=== PATIENT | female | born 1950 | race Caucasian/White ===

== ENCOUNTER 2021-02-08 17:19 | Inpatient (IN) | payer MEDICARE, SELFPAY ==
[2021-02-08] VITALS (7 sets, daily range): BP systolic 123–132; BP diastolic 59–71; PULSE 99–105; RESP 20–23; TEMP 36.7–36.8; O2SAT 90–96; BMI 32.3
--- NOTE | 2021-02-08 17:22 | HP.PCM.HOS_ITS ---
HPI - General General Date of Admission: 02/08/21 HPI Narrative ADRIA MCCLENDON, is a 70 F who presents as a direct admission from an outside hospital. She presented there at 02/04/2021 with Covid-like symptoms. Symptoms had started 3 days prior to her admission there, and she had gone to that ER 2 days prior to her admission and had a positive Covid test. She had represented for admission secondary to worsening shortness of breath. She was started on remdesivir, and Decadron. She has completed remdesivir but is still on Decadron. Reason for transfer was because she was requiring more oxygen today. She was initially on 3 to 4 L nasal cannula this morning however this afternoon they had to place her on 15 L with a nonrebreather and they do not have pulmonology or critical care at that hospital and therefore need to be transferred to a higher level of care. [facility] Medical History (Updated 02/08/21 @ 17:[address] Venu Cantrell MD) CAD (coronary artery disease) Diabetes mellitus, type 2 HTN (hypertension) Hyperlipidemia Family History (Updated 02/08/21 @ 17:[address] Venu Cantrell MD) Other Diabetes Heart disease Surgical History (Updated 02/08/21 @ 17:[address] Venu Cantrell MD) Status post coronary artery stent placement Social History (Updated 02/08/21 @ 17:[address] Venu Cantrell MD) Smoking Status: Never smoker alcohol intake: former substance use type: does not use ROS Constitutional Constitutional: Denies chills, fatigue, fever(s) or malaise Eyes Eyes: Denies blurry vision ENT HEENT: Denies headache(s) or nasal discharge Cardiovascular Cardiovascular: Reports dyspnea on exertion; Denies chest pain or syncope Respiratory/Chest Respiratory/Chest: Reports cough and shortness of breath at rest; Denies shortness of breath with exertion Gastrointestinal Gastrointestinal: Denies constipation, diarrhea, nausea or vomiting Genitourinary Genitourinary: Denies dysuria Neurologic Neurologic: Denies focal weakness, numbness or tremor(s) Psychiatric Psychiatric: Denies anxiety or depression Physical Exam Const alert, oriented x3 and no apparent distress General Appearance: cooperative HEENT normocephalic Mouth: dry mucous membranes Eyes PERRL, EOMs intact bilaterally and conjunctivae normal Neck supple and no JVD Resp normal respiratory effort, no retractions and no use of accessory muscles Auscultation: crackles; Negative for rales, rhonchi or wheezes Cardio regular rhythm, S1 normal heart sound, S2 normal heart sound and no murmurs Rate: tachycardic GI soft to palpation, non-tender and non-distended; Negative for hepatosplenomegaly Extremity no clubbing, cyanosis or edema Skin no rashes or lesions noted Neuro no focal motor deficits and no sensory deficits noted Psych affect normal Appearance: appropriate Assessment & Plan Assessment/Plan (1) UTI (urinary tract infection): (2) Pneumonia due to COVID-19 virus: (3) Acute respiratory failure with hypoxia: PLAN: 1. Acute hypoxic respiratory failure secondary to COVID-19 pneumonia -We will continue with Decadron and repeat labs in the morning -I asked the outside hospital to obtain a CTA and they state that there is no PE therefore will repeat creatinine in the morning and if stable can give her a dose of Lasix for the crackles -Creatinine today at the outside hospital was 1.22 -Also for renal function is stable and neutrophils and lymphocytes are within acceptable limits, will consult infectious disease for baricitinib as able be within 24 to 48 hours of clinical worsening -Continue with incentive spirometry and Pep -Encourage proning 2. UTI -Had labs done this morning at the outside hospital UA was consistent with UTI and she was started on Rocephin -We will continue with Rocephin here and notify the outside hospital a few days to obtain culture results 3. HTN/HLD/CAD status post stent -We will clarify her home medications -Blood pressures are currently stable -When able can restart her aspirin, Coreg, Plavix, isosorbide -We will hold her lisinopril secondary to her renal function and the need to give Lasix 4. DM2 -Will hold her home Metformin and place her on sliding scale insulin -Accu-Cheks AC at bedtime -We will adjust insulin dosing as necessary DVT: Lovenox Charges/Coding Visit Charges Inpatient E&M: 56545 Init Hosp L3
[2021-02-09] VITALS (25 sets, daily range): BP systolic 107–134; BP diastolic 48–101; PULSE 70–104; RESP 12–24; TEMP 36.6–36.8; O2SAT 90–98
[2021-02-09 07:15] LABS: Absolute Lymphocyte Count 1.14 X10^3/uL (0.83-4.51); Absolute Neutrophil Count 9.5 X10^3/uL (2.0-7.7); Basophil# 0.01 X10^3/uL; Basophil% 0.1 % (0-1); Hematocrit 28.2 % (37-47); Hemoglobin 9.5 g/dL (12.0-15.0); Lymphocyte # 1.14 X10^3/ul (0.83-4.51); Lymphocyte % 10.1 % (19-41); Mean Corp Hgb Conc 33.7 g/dL (32-36); Mean Corpuscular Volume 92.2 fL (81-99); Mean Platelet Vol. 10.6 fl (6.2-12.0); Monocyte# 0.57 X10^3/uL; NRBC Flagged by Analyzer 0.2 % (0-5); Neutrophil # 9.48 X10^3/uL (2.7-7.7); Platelet Count 432 K/mm3 (150-450); RBC Distribution Width SD 43.8 fl (35.1-43.9); Red Blood Count 3.06 M/mm3 (4.2-5.4); White Blood Count 11.3 K/mm3 (4.4-11.0)
[2021-02-09 07:43] LABS: BUN 34 mg/dL (7-18); Creatinine, Serum 1.07 mg/dL (0.55-1.02); Glucose 252 mg/dL (74-106)
[2021-02-09 07:44] LABS: ALB/GLOB Ratio 0.4 RATIO (0.9-2.4); AST(SGOT) 14 U/L (15-37); Alanine Aminotransfer ALT/SGPT 29 U/L (13-56); Alkaline Phosphatase 52 U/L (45-117); Anion Gap 7 (5-15); BUN/Creat Ratio 31.8 RATIO (10-20); Calcium,Total 8.8 mg/dL (8.5-10.1); Chloride 108 mmol/L (98-107); EST Glomerular Filtration Rate 54 mL/min (>60); Est Glom Filt Rate - Afr Amer 65 mL/min (>60); Estimated Creatinine Clearance 37.59 ml/min; Globulin 4.7 g/dL (2.2-4.2); Potassium 3.9 mmol/L (3.5-5.1); Protein, Total 6.7 g/dL (6.4-8.2); Sodium Level 137 mmol/L (136-145)
[2021-02-09] MEDS: Isosorbide Mononitrate 30 MG Tablet PO (09:29)
[2021-02-09] MEDS: Aspirin 81 MG TAB.CHEW PO (09:29)
[2021-02-09] MEDS: Carvedilol 6.25 MG Tablet PO (09:29)
[2021-02-09] MEDS: Enoxaparin 40 MG/0.4 ML Syringe SC ×2 (09:29→21:22)
[2021-02-09] MEDS: dexAMETHasone 4 MG Tablet 6 MG PO (09:29)
[2021-02-09] MEDS: Famotidine 20 MG Tablet PO (09:29)
[2021-02-09] MEDS: Furosemide 20 MG/2 ML VIAL IV (10:01)
[2021-02-09] MEDS: Ceftriaxone 1 GM/50 ML BAG IV (10:05)
--- NOTE | 2021-02-09 10:56 | PN.HOSP_ITS ---
Subjective Subjective Remains unchanged. Currently on air Vo with an FiO2 of 82 and a sat of 95% Objective Data Objective Data Vital Signs: Vital Signs Temp Pulse Resp BP Pulse Ox 97.9 F 85 20 H 129/67 H 95 02/09/21 10:12 02/09/21 10:12 02/09/21 10:12 02/09/21 10:12 02/09/21 10:12 Oxygen Flow Rate (L/min) 55 Oxygen Delivery Method Airvo Weight: 176 lb 12.972 oz Body Mass Index (BMI) 32.3 Intake & Output: Intake and Output for Last 24 Hours 02/08/21 02/09/21 02/10/21 03:59 03:59 03:59 Intake Total 120 / 120 120 / 120 Output Total 650 / 650 250 / 250 Balance -530 / -530 -130 / -130 Lab / Micro Data Result Diagrams: 02/09/21 06:19 02/09/21 06:19 Labs: Laboratory Results - last 24 hr 02/09/21 06:19: WBC 11.3 H, RBC 3.06 L, Hgb 9.5 L, Hct 28.2 L, MCV 92.2, MCH 31.0, MCHC 33.7, RDW Std Deviation 43.8, RDW Coeff of Rosa 13.0, Plt Count 432, MPV 10.6, Immature Gran % (Auto) 0.800, Neut % (Auto) 84.0 H, Lymph % (Auto) 10.1 L, [place] % (Auto) 5.0, Eos % (Auto) 0.0, Baso % (Auto) 0.1, Absolute Neuts (auto) 9.5 H, Absolute Lymphs (auto) 1.14, Nucleated RBC % 0.2 02/09/21 06:19: Sodium 137, Potassium 3.9, Chloride 108 H, Carbon Dioxide 22.0, Anion Gap 7, BUN 34 H, Creatinine 1.07 H, Estim Creat Clear Calc 37.59, Est GFR (MDRD) Af Amer 65, Est GFR (MDRD) Non-Af 54 L, BUN/Creatinine Ratio 31.8 H, G lucose 252 H, Calcium 8.8, Total Bilirubin 0.30, AST 14 L, ALT 29, Alkaline Phosphatase 52, Total Protein 6.7, Albumin 2.0 L, Globulin 4.7 H, Albumin/Globulin Ratio 0.4 L Physical Exam Const alert, oriented x3 and no apparent distress General Appearance: cooperative HEENT normocephalic Eyes PERRL, EOMs intact bilaterally and conjunctivae normal Neck supple and no JVD Resp normal respiratory effort, no retractions and no use of accessory muscles Auscultation: crackles; Negative for rales, rhonchi or wheezes Cardio regular rate, regular rhythm, S1 normal heart sound, S2 normal heart sound and no murmurs GI soft to palpation, non-tender and non-distended; Negative for hepatosplenomegaly Extremity no clubbing, cyanosis or edema Skin no rashes or lesions noted Neuro no focal motor deficits and no sensory deficits noted Psych affect normal Appearance: appropriate Assessment & Plan Assessment/Plan (1) UTI (urinary tract infection): (2) Pneumonia due to COVID-19 virus: (3) Acute respiratory failure with hypoxia: PLAN: 1. Acute hypoxic respiratory failure secondary to COVID-19 pneumonia -We will continue with Decadron and repeat labs in the morning -Continue with as needed Lasix secondary to crackles -Renal function is stable, will continue to monitor -Given her clinical worsening, will consult infectious disease for baricitinib recommendations worsening occurred within the last 24 to 48 hours -Continue with incentive spirometry and Pep -Encourage proning 2. UTI -Had labs done this morning at the outside hospital UA was consistent with UTI and she was started on Rocephin -We will continue with Rocephin here and notify the outside hospital a few days to obtain culture results 3. HTN/HLD/CAD status post stent -Blood pressures are currently stable -Continue with her home aspirin, Coreg, Plavix, isosorbide -We will hold her lisinopril secondary to her renal function and the need to give Lasix 4. DM2 -Will hold her home Metformin and place her on sliding scale insulin -Accu-Cheks AC at bedtime -We will adjust insulin dosing as necessary DVT: Lovenox Charges/Coding Visit Charges Inpatient E&M: 74536 Subs Hosp L2
--- NOTE | 2021-02-09 12:55 | CASEMGMT ---
RN CM called patient in room for initial transition planning/care coordination assessment. RN CM introduced self and role at [facility]. Patient is alert and oriented. Patient willing to participate in assessment and is able to answer all questions appropriately. Care providers, pharmacy, and demographics verified. Patient wishes to discharge home, will monitor for HHC pending therapy. Patient states she has no further needs or concerns at this time. CM to follow for discharge planning needs that may arise. PCP: Joseph Johnson Specialists: [facility] Specialist in [place] Preferred Pharmacy: [facility] Insurance: [facility] Prescription Benefit: yes Living Will/HPOA: none LNOK: daughter Living Arrangements: Patient lives alone in a 2 story home with bed and bath on first floor. 3 steps to enter the home. Transportation: boyfriend DME/HHC: Patient states she has cane and walker at home. Denies previous HHC or SNF. No preference for DME. Disposition Plan: Patient to discharge home with follow-up plans in place. Will monitor for home oxygen and HHC. Shari KILGORE, RN, CM
--- NOTE | 2021-02-09 15:02 | PCM.CONS.GEN ---
Assessment & Plan Assessment/Plan (1) Pneumonia due to COVID-19 virus: PLAN: Sx started 01/28/21. Isolate until 02/17/21. Recommended vaccine after discharge. On dex. Reviewed EUA and risks/benefits with her, we agree to start baricitinib. On ceftriaxone for possible uti, may be able to stop depending on results from OSH. Given severity of illness, would increase lovenox to bid. Will follow, thank you (2) Acute respiratory failure with hypoxia: HPI Consult Data Date of Consult: 02/09/21 HPI Narrative HPI Narrative: ADRIA MCCLENDON, is a 70 F who presented as a transfer on 02/08 with sx since 01/28. Unvaccinated. Lives alone. C/o fever, chills, cough, dyspnea. Started on ceftriaxone. Now on airvo. Full ROS performed and neg except as noted above. [facility] Medical History CAD (coronary artery disease) Diabetes mellitus, type 2 HTN (hypertension) Hyperlipidemia Home Medications aspirin 81 mg PO DAILY 02/08/21 [History Last Taken Unknown] carvedilol 6.25 mg PO DAILY 02/08/21 [History Last Taken Unknown] famotidine 20 mg PO DAILY 02/08/21 [History Last Taken Unknown] isosorbide mononitrate 30 mg PO DAILY 02/08/21 [History Last Taken Unknown] lisinopril 10 mg PO DAILY 02/08/21 [History Last Taken Unknown] metformin 2,400 mg PO DAILY 02/08/21 [History Last Taken Unknown] pravastatin 40 mg PO DAILY 02/08/21 [History Last Taken Unknown] Allergy/AdvReac Type Severity Reaction Status Date / Time latex Allergy Itching Verified 02/08/21 17:38 oxycodone [From Percocet] Allergy Other Verified 02/08/21 17:37 Family History (Updated 02/08/21 @ 17:[address] Venu Cantrell MD) Other Diabetes Heart disease Surgical History (Updated 02/08/21 @ 17:[address] Venu Cantrell MD) Status post coronary artery stent placement Social History (Updated 02/08/21 @ 17:[address] Venu Cantrell MD) Smoking Status: Never smoker alcohol intake: former substance use type: does not use Physical Exam Const alert, oriented x3 and no apparent distress General Appearance: cooperative Exam Limitations: no limitations HEENT normocephalic and head/scalp atraumatic Eyes PERRL and EOMs intact bilaterally Neck supple and No nodes Resp Auscultation: diminished lung sounds Cardio regular rate and regular rhythm GI normal to inspection, nondistended, normoactive bowel sounds Extremity no clubbing, cyanosis or edema Skin no rashes or lesions noted Neuro CN's II-XII intact bilaterally Medical Records Data Medical Nutrition Assessment Dietitian: Malnutrition Criteria Met Start: 02/09/21 11:39 Freq: Status: Active Protocol: Document 02/09/21 11:39 AG (Rec: 02/09/21 11:39 AG Desktop) Nutrition Malnutrition Evidence of Malnutrition Exists Yes Malnutrition (moderate): Acute Illness/Injury Evidenced By Suboptimal Energy Intake ( Moderate),Weight Loss ( Moderate) Clinical Problem Acute Disease or Injury Related Malnutrition Etiology moderate, acute malnutrition r /t inadequate energy intake d/ t COVID-19 illness Signs/Symptoms as evidenced by unintentional wt loss of 5.2#/2.8% x 1 week, estimated PO intake meeting < 75% of estimated nutritional needs >1 week Status Active Problem Recommendation Dietitian Recommendations/Changes continue cardiac diet as ordered; will add 4oz Glucerna w/ meals d/t acute malnutrition; if PO intake continues to be poor, recommend liberalize diet to regular. If PO intake improves at meals, recommend cardiac, 1600 calorie controlled/ consistent carbohydrate diet. Lab / Micro Data Result Diagrams: 02/09/21 06:19 02/09/21 06:19 Labs: Laboratory Results - last 24 hr 02/09/21 06:19: WBC 11.3 H, RBC 3.06 L, Hgb 9.5 L, Hct 28.2 L, MCV 92.2, MCH 31.0, MCHC 33.7, RDW Std Deviation 43.8, RDW Coeff of Rosa 13.0, Plt Count 432, MPV 10.6, Immature Gran % (Auto) 0.800, Neut % (Auto) 84.0 H, Lymph % (Auto) 10.1 L, [place] % (Auto) 5.0, Eos % (Auto) 0.0, Baso % (Auto) 0.1, Absolute Neuts (auto) 9.5 H, Absolute Lymphs (auto) 1.14, Nucleated RBC % 0.2 02/09/21 06:19: Sodium 137, Potassium 3.9, Chloride 108 H, Carbon Dioxide 22.0, Anion Gap 7, BUN 34 H, Creatinine 1.07 H, Estim Creat Clear Calc 37.59, Est GFR (MDRD) Af Amer 65, Est GFR (MDRD) Non-Af 54 L, BUN/Creatinine Ratio 31.8 H, Glucose 252 H, Calcium 8.8, Total Bilirubin 0.30, AST 14 L, ALT 29, Alkaline Phosphatase 52, Total Protein 6.7, Albumin 2.0 L, Globulin 4.7 H, Albumin/Globulin Ratio 0.4 L
[2021-02-09] MEDS: Insulin Lispro 100 UNIT/ML INSULN.PEN SC ×2 (15:33→21:22)
[2021-02-09 15:41] LABS: Bedside Glucose 304 mg/dL (70-110)
[2021-02-09] MEDS: Pravastatin 40 MG Tablet PO (21:22)
[2021-02-09 21:35] LABS: Bedside Glucose 318 mg/dL (70-110)
[2021-02-10] VITALS (16 sets, daily range): BP systolic 96–122; BP diastolic 50–62; PULSE 65–83; RESP 19–25; TEMP 36.4–36.7; O2SAT 55–97
[2021-02-10] MEDS: Insulin Lispro 100 UNIT/ML INSULN.PEN SC ×5 (06:15→22:12)
[2021-02-10] MEDS: Acetaminophen 325 MG Tablet 650 MG PO (06:15)
[2021-02-10] MEDS: Benzonatate 100 MG Capsule PO (06:16)
[2021-02-10 06:26] LABS: Bedside Glucose 279 mg/dL (70-110)
--- NOTE | 2021-02-10 07:10 | PCS.PANDOC ---
PANDEMIC DOCUMENTATION INITIATED: Date: 11/10/2020 Time: 190
[2021-02-10 07:16] LABS: Absolute Lymphocyte Count 1.62 X10^3/uL (0.83-4.51); Absolute Neutrophil Count 8.7 X10^3/uL (2.0-7.7); Basophil# 0.02 X10^3/uL; Basophil% 0.2 % (0-1); Hematocrit 29.6 % (37-47); Lymphocyte # 1.62 X10^3/ul (0.83-4.51); Lymphocyte % 14.4 % (19-41); Mean Corp Hgb Conc 33.8 g/dL (32-36); Mean Corpuscular Volume 91.6 fL (81-99); Mean Platelet Vol. 10.6 fl (6.2-12.0); Monocyte# 0.85 X10^3/uL; Monocyte% 7.5 % (0-10); NRBC Flagged by Analyzer 0.3 % (0-5); Neutrophil # 8.66 X10^3/uL (2.7-7.7); Neutrophil % 76.7 % (47-70); Platelet Count 516 K/mm3 (150-450); RBC Distribution Width SD 43.4 fl (35.1-43.9); Red Blood Count 3.23 M/mm3 (4.2-5.4); White Blood Count 11.3 K/mm3 (4.4-11.0)
[2021-02-10 08:09] LABS: ALB/GLOB Ratio 0.4 RATIO (0.9-2.4); AST(SGOT) 12 U/L (15-37); Alanine Aminotransfer ALT/SGPT 26 U/L (13-56); Albumin, Serum 2.1 g/dL (3.2-5.0); Alkaline Phosphatase 54 U/L (45-117); Anion Gap 9 (5-15); BUN 52 mg/dL (7-18); BUN/Creat Ratio 48.1 RATIO (10-20); Calcium,Total 8.8 mg/dL (8.5-10.1); Chloride 105 mmol/L (98-107); Creatinine, Serum 1.08 mg/dL (0.55-1.02); EST Glomerular Filtration Rate 53 mL/min (>60); Est Glom Filt Rate - Afr Amer 64 mL/min (>60); Estimated Creatinine Clearance 37.24 ml/min; Globulin 4.9 g/dL (2.2-4.2); Glucose 285 mg/dL (74-106); Potassium 3.8 mmol/L (3.5-5.1); Sodium Level 134 mmol/L (136-145)
[2021-02-10] MEDS: Ceftriaxone 1 GM/50 ML BAG IV (09:54)
[2021-02-10] MEDS: Enoxaparin 40 MG/0.4 ML Syringe SC ×2 (09:55→22:12)
[2021-02-10] MEDS: Aspirin 81 MG TAB.CHEW PO (09:56)
[2021-02-10] MEDS: Isosorbide Mononitrate 30 MG Tablet PO (09:56)
[2021-02-10] MEDS: dexAMETHasone 4 MG Tablet 6 MG PO (09:56)
[2021-02-10] MEDS: Famotidine 20 MG Tablet PO (09:56)
[2021-02-10] MEDS: Carvedilol 6.25 MG Tablet PO (09:57)
[2021-02-10 12:00] LABS: Bedside Glucose 239 mg/dL (70-110)
--- NOTE | 2021-02-10 14:47 | PCM.PN.HOSP ---
Subjective Subjective Feels about the same. Maintaining her oxygen saturations on air Vo. She does generally take part in therapies this typically when I saw her this afternoon she had not done the incentive spirometry at all despite multiple conversations about how important it is. Objective Data Objective Data Vital Signs: Vital Signs Temp Pulse Resp BP Pulse Ox 98.0 F 70 20 H 113/62 95 02/10/21 12:00 02/10/21 12:00 02/10/21 12:00 02/10/21 12:00 02/10/21 12:00 Oxygen Flow Rate (L/min) 55 Oxygen Delivery Method Airvo Weight: 176 lb 12.972 oz Body Mass Index (BMI) 32.3 Intake & Output: Intake and Output for Last 24 Hours 02/09/21 02/10/21 02/11/21 03:59 03:59 03:59 Intake Total 120 / 120 1170 / 1170 530 / 530 Output Total 650 / 650 1050 / 1050 100 / 100 Balance -530 / -530 120 / 120 430 / 430 Medical Nutrition Assessment Dietitian: Malnutrition Criteria Met Start: 02/09/21 11:39 Freq: Status: Active Protocol: Document 02/09/21 11:39 AG (Rec: 02/09/21 11:39 AG Desktop) Nutrition Malnutrition Evidence of Malnutrition Exists Yes Malnutrition (moderate): Acute Illness/Injury Evidenced By Suboptimal Energy Intake ( Moderate),Weight Loss ( Moderate) Clinical Problem Acute Disease or Injury Related Malnutrition Etiology moderate, acute malnutrition r /t inadequate energy intake d/ t COVID-19 illness Signs/Symptoms as evidenced by unintentional wt loss of 5.2#/2.8% x 1 week, estimated PO intake meeting < 75% of estimated nutritional needs >1 week Status Active Problem Recommendation Dietitian Recommendations/Changes continue cardiac diet as ordered; will add 4oz Glucerna w/ meals d/t acute malnutrition; if PO intake continues to be poor, recommend liberalize diet to regular. If PO intake improves at meals, recommend cardiac, 1600 calorie controlled/ consistent carbohydrate diet. Lab / Micro Data Result Diagrams: 02/10/21 06:40 02/10/21 06:40 Labs: Laboratory Results - last 24 hr 02/09/21 15:29: POC Glucose 304 H 02/09/21 21:20: POC Glucose 318 H 02/10/21 06:15: POC Glucose 279 H 02/10/21 06:40: WBC 11.3 H, RBC 3.23 L, Hgb 10.0 L, Hct 29.6 L, MCV 91.6, MCH 31.0, MCHC 33.8, RDW Std Deviation 43.4, RDW Coeff of Rosa 13.0, Plt Count 516 H, MPV 10.6, Immature Gran % (Auto) 1.200 H, Neut % (Auto) 76.7 H, Lymph % (Auto) 14.4 L, [place] % (Auto) 7.5, Eos % (Auto) 0.0, Baso % (Auto) 0.2, Absolute Neuts (auto) 8.7 H, Absolute Lymphs (auto) 1.62, Nucleated RBC % 0.3 02/10/21 06:40: Sodium 134 L, Potassium 3.8, Chloride 105, Carbon Dioxide 20.0 L, Anion Gap 9, BUN 52 H, Creatinine 1.08 H, Estim Creat Clear Calc 37.24, Est GFR (MDRD) Af Amer 64, Est GFR (MDRD) Non-Af 53 L, BUN/Creatinine Ratio 48.1 H, Glucose 285 H, Calcium 8.8, Total Bilirubin 0.30, AST 12 L, ALT 26, Alkaline Phosphatase 54, Total Protein 7.0, Albumin 2.1 L, Globulin 4.9 H, Albumin/Globulin Ratio 0.4 L 02/10/21 11:51: POC Glucose 239 H Physical Exam Const alert, oriented x3 and no apparent distress General Appearance: cooperative HEENT normocephalic Eyes PERRL, EOMs intact bilaterally and conjunctivae normal Neck supple and no JVD Resp normal respiratory effort, no retractions and no use of accessory muscles Auscultation: crackles; Negative for rales, rhonchi or wheezes Cardio regular rate, regular rhythm, S1 normal heart sound, S2 normal heart sound and no murmurs GI soft to palpation, non-tender and non-distended; Negative for hepatosplenomegaly Extremity no clubbing, cyanosis or edema Skin no rashes or lesions noted Neuro no focal motor deficits and no sensory deficits noted Psych affect normal Appearance: appropriate Assessment & Plan Assessment/Plan (1) UTI (urinary tract infection): (2) Pneumonia due to COVID-19 virus: (3) Acute respiratory failure with hypoxia: PLAN: 1. Acute hypoxic respiratory failure secondary to COVID-19 pneumonia -We will continue with Decadron and repeat labs in the morning -Continue with as needed Lasix secondary to crackles -Renal function is stable, will continue to monitor -Appreciate infectious disease input. Continue with baricitinib -Continue with incentive spirometry and Pep -Encourage proning 2. UTI -Had labs done this morning at the outside hospital UA was consistent with UTI and she was started on Rocephin -We will continue with Rocephin here and notify the outside hospital a few days to obtain culture results 3. HTN/HLD/CAD status post stent -Blood pressures are currently stable -Continue with her home aspirin, Coreg, Plavix, isosorbide -We will hold her lisinopril secondary to her renal function and the need to give Lasix 4. DM2 -Will hold her home Metformin and place her on sliding scale insulin -Accu-Cheks AC at bedtime -We will adjust insulin dosing as necessary DVT: Lovenox Charges/Coding Visit Charges Inpatient E&M: 31237 Subs Hosp L2
[2021-02-10 16:51] LABS: Bedside Glucose 259 mg/dL (70-110)
[2021-02-10] MEDS: Pravastatin 40 MG Tablet PO (22:12)
[2021-02-10 22:26] LABS: Bedside Glucose 227 mg/dL (70-110)
[2021-02-11] VITALS (18 sets, daily range): BP systolic 86–135; BP diastolic 54–68; PULSE 68–90; RESP 16–24; TEMP 36.4–36.8; O2SAT 90–100
[2021-02-11 07:37] LABS: Anion Gap 7 (5-15); BUN 63 mg/dL (7-18); BUN/Creat Ratio 55.8 RATIO (10-20); Calcium,Total 8.9 mg/dL (8.5-10.1); Chloride 106 mmol/L (98-107); Creatinine, Serum 1.13 mg/dL (0.55-1.02); EST Glomerular Filtration Rate 50 mL/min (>60); Est Glom Filt Rate - Afr Amer 61 mL/min (>60); Estimated Creatinine Clearance 35.59 ml/min; Glucose 239 mg/dL (74-106); Sodium Level 134 mmol/L (136-145)
[2021-02-11] MEDS: Insulin Lispro 100 UNIT/ML INSULN.PEN SC ×6 (07:51→22:36)
[2021-02-11 08:06] LABS: Bedside Glucose 222 mg/dL (70-110)
[2021-02-11] MEDS: Enoxaparin 40 MG/0.4 ML Syringe SC ×2 (08:30→22:34)
[2021-02-11] MEDS: Ceftriaxone 1 GM/50 ML BAG IV (08:30)
[2021-02-11] MEDS: Carvedilol 6.25 MG Tablet PO (08:32)
[2021-02-11] MEDS: Isosorbide Mononitrate 30 MG Tablet PO (08:32)
[2021-02-11] MEDS: dexAMETHasone 4 MG Tablet 6 MG PO (08:32)
[2021-02-11] MEDS: Aspirin 81 MG TAB.CHEW PO (08:32)
[2021-02-11] MEDS: Famotidine 20 MG Tablet PO (08:32)
--- NOTE | 2021-02-11 10:55 | PCM.PN.HOSP ---
Subjective Subjective Had an increase in her FiO2 to 93%. She is now satting 100%. Unfortunately she does not do much in the room and she does not do the incentive spirometry or the Pep therapy frequently without significantly watching it and instruction Objective Data Objective Data Vital Signs: Vital Signs Temp Pulse Resp BP Pulse Ox 97.7 F L 83 20 H 107/59 L 100 02/11/21 10:00 02/11/21 10:00 02/11/21 10:00 02/11/21 10:00 02/11/21 10:00 Oxygen Flow Rate (L/min) 55 Oxygen Delivery Method Airvo Weight: 176 lb 12.972 oz Body Mass Index (BMI) 32.3 Intake & Output: Intake and Output for Last 24 Hours 02/10/21 02/11/21 02/12/21 03:59 03:59 03:59 Intake Total 1170 / 1170 1010 / 1010 170 / 170 Output Total 1050 / 1050 100 / 100 100 / 100 Balance 120 / 120 910 / 910 70 / 70 Medical Nutrition Assessment Dietitian: Malnutrition Criteria Met Start: 02/09/21 11:39 Freq: Status: Active Protocol: Document 02/09/21 11:39 AG (Rec: 02/09/21 11:39 AG Desktop) Nutrition Malnutrition Evidence of Malnutrition Exists Yes Malnutrition (moderate): Acute Illness/Injury Evidenced By Suboptimal Energy Intake ( Moderate),Weight Loss ( Moderate) Clinical Problem Acute Disease or Injury Related Malnutrition Etiology moderate, acute malnutrition r /t inadequate energy intake d/ t COVID-19 illness Signs/Symptoms as evidenced by unintentional wt loss of 5.2#/2.8% x 1 week, estimated PO intake meeting < 75% of estimated nutritional needs >1 week Status Active Problem Recommendation Dietitian Recommendations/Changes continue cardiac diet as ordered; will add 4oz Glucerna w/ meals d/t acute malnutrition; if PO intake continues to be poor, recommend liberalize diet to regular. If PO intake improves at meals, recommend cardiac, 1600 calorie controlled/ consistent carbohydrate diet. Lab / Micro Data Result Diagrams: 02/10/21 06:40 02/11/21 06:46 Labs: Laboratory Results - last 24 hr 02/10/21 11:51: POC Glucose 239 H 02/10/21 16:38: POC Glucose 259 H 02/10/21 22:11: POC Glucose 227 H 02/11/21 06:46: Sodium 134 L, Potassium 4.0, Chloride 106, Carbon Dioxide 21.0, Anion Gap 7, BUN 63 H, Creatinine 1.13 H, Estim Creat Clear Calc 35.59, Est GFR (MDRD) Af Amer 61, Est GFR (MDRD) Non-Af 50 L, BUN/Creatinine Ratio 55.8 H, Glucose 239 H, Calcium 8.9 02/11/21 07:51: POC Glucose 222 H Physical Exam Const alert, oriented x3 and no apparent distress General Appearance: cooperative HEENT normocephalic Eyes PERRL, EOMs intact bilaterally and conjunctivae normal Neck supple and no JVD Resp normal respiratory effort, no retractions and no use of accessory muscles Auscultation: crackles; Negative for rales, rhonchi or wheezes Cardio regular rate, regular rhythm, S1 normal heart sound, S2 normal heart sound and no murmurs Rate: tachycardic GI soft to palpation, non-tender and non-distended; Negative for hepatosplenomegaly Extremity no clubbing, cyanosis or edema Skin no rashes or lesions noted Neuro no focal motor deficits and no sensory deficits noted Psych affect normal Appearance: appropriate Assessment & Plan Assessment/Plan (1) UTI (urinary tract infection): (2) Pneumonia due to COVID-19 virus: (3) Acute respiratory failure with hypoxia: PLAN: 1. Acute hypoxic respiratory failure secondary to COVID-19 pneumonia -We will continue with Decadron -Continue with as needed Lasix secondary to crackles -Renal function is stable, will continue to monitor -Appreciate infectious disease input. Continue with baricitinib -Continue with incentive spirometry and Pep -Encourage proning 2. UTI due to E. coli -Labs at the outside hospital demonstrated UTI -We will complete Rocephin tomorrow, she had a pansensitive E. coli in the urine culture from the outside hospital 3. HTN/HLD/CAD status post stent -Blood pressures are currently stable -Continue with her home aspirin, Coreg, Plavix, isosorbide -We will hold her lisinopril secondary to her renal function and the need to give Lasix 4. DM2 -Will hold her home Metformin and place her on sliding scale insulin -Accu-Cheks AC at bedtime -We will adjust insulin dosing as necessary DVT: Lovenox Charges/Coding Visit Charges Inpatient E&M: 07190 Subs Hosp L2
[2021-02-11 11:46] LABS: Bedside Glucose 197 mg/dL (70-110)
[2021-02-11] MEDS: Insulin Lispro 100 UNIT/ML INSULN.PEN 10 UNIT SC (16:40)
[2021-02-11] MEDS: Pravastatin 40 MG Tablet PO (22:34)
[2021-02-11 22:46] LABS: Bedside Glucose 216 mg/dL (70-110)
[2021-02-11 22:46] LABS: Bedside Glucose 181 mg/dL (70-110)
[2021-02-12] VITALS (17 sets, daily range): BP systolic 116–134; BP diastolic 59–68; PULSE 81–94; RESP 12–20; TEMP 36.5–37.1; O2SAT 92–97
[2021-02-12] MEDS: Insulin Lispro 100 UNIT/ML INSULN.PEN SC ×4 (08:17→22:12)
[2021-02-12] MEDS: Insulin Lispro 100 UNIT/ML INSULN.PEN 10 UNIT SC ×3 (08:18→15:57)
[2021-02-12] MEDS: Aspirin 81 MG TAB.CHEW PO (08:19)
[2021-02-12 08:25] LABS: Bedside Glucose 157 mg/dL (70-110)
[2021-02-12 08:27] LABS: Absolute Neutrophil Count 14.7 X10^3/uL (2.0-7.7); Basophil# 0.03 X10^3/uL; Basophil% 0.2 % (0-1); Hemoglobin 10.1 g/dL (12.0-15.0); Lymphocyte % 6.4 % (19-41); Mean Corp Hgb Conc 33.7 g/dL (32-36); Mean Corpuscular Hgb 31.2 pg (27.0-32.0); Mean Corpuscular Volume 92.6 fL (81-99); Mean Platelet Vol. 10.3 fl (6.2-12.0); Monocyte# 1.28 X10^3/uL; Monocyte% 7.4 % (0-10); NRBC Flagged by Analyzer 0.1 % (0-5); Neutrophil % 85.4 % (47-70); Platelet Count 491 K/mm3 (150-450); RBC Distribution Width CV 12.9 % (11.6-14.6); RBC Distribution Width SD 43.5 fl (35.1-43.9); Red Blood Count 3.24 M/mm3 (4.2-5.4); White Blood Count 17.2 K/mm3 (4.4-11.0)
[2021-02-12 08:40] LABS: ALB/GLOB Ratio 0.5 RATIO (0.9-2.4); AST(SGOT) 12 U/L (15-37); Alanine Aminotransfer ALT/SGPT 21 U/L (13-56); Albumin, Serum 2.1 g/dL (3.2-5.0); Alkaline Phosphatase 50 U/L (45-117); Anion Gap 10 (5-15); BUN 58 mg/dL (7-18); BUN/Creat Ratio 52.7 RATIO (10-20); Calcium,Total 8.6 mg/dL (8.5-10.1); Chloride 105 mmol/L (98-107); EST Glomerular Filtration Rate 52 mL/min (>60); Est Glom Filt Rate - Afr Amer 63 mL/min (>60); Estimated Creatinine Clearance 36.56 ml/min; Globulin 4.6 g/dL (2.2-4.2); Glucose 173 mg/dL (74-106); Potassium 4.5 mmol/L (3.5-5.1); Protein, Total 6.7 g/dL (6.4-8.2); Sodium Level 136 mmol/L (136-145)
[2021-02-12] MEDS: Isosorbide Mononitrate 30 MG Tablet PO (09:58)
[2021-02-12] MEDS: Carvedilol 6.25 MG Tablet PO (09:58)
[2021-02-12] MEDS: dexAMETHasone 4 MG Tablet 6 MG PO (09:58)
[2021-02-12] MEDS: Enoxaparin 40 MG/0.4 ML Syringe SC ×2 (09:59→22:10)
[2021-02-12] MEDS: Famotidine 20 MG Tablet PO (09:59)
[2021-02-12 11:25] LABS: Bedside Glucose 193 mg/dL (70-110)
[2021-02-12 16:15] LABS: Bedside Glucose 301 mg/dL (70-110)
--- NOTE | 2021-02-12 19:54 | PCM.PN.HOSP ---
Subjective Subjective Patient was seen and examined today, she is currently on Airvo, she does not appear short of breath at rest, she does not complain of any chest discomfort. Objective Data Objective Data Vital Signs: Vital Signs Temp Pulse Resp BP Pulse Ox 98.1 F 88 17 117/65 93 02/12/21 15:57 02/12/21 17:29 02/12/21 17:29 02/12/21 15:57 02/12/21 17:29 Oxygen Flow Rate (L/min) 50 Oxygen Delivery Method Airvo Weight: 80.2 kg Body Mass Index (BMI) 32.3 Intake & Output: Intake and Output for Last 24 Hours 02/10/21 02/11/21 02/12/21 23:59 23:59 23:59 Intake Total 890 / 1130 1070 / 1070 820 / 820 Output Total 100 / 100 950 / 950 450 / 450 Balance 790 / 1030 120 / 120 370 / 370 Medical Nutrition Assessment Dietitian: Malnutrition Criteria Met Start: 02/09/21 11:39 Freq: Status: Active Protocol: Document 02/09/21 11:39 AG (Rec: 02/09/21 11:39 AG Desktop) Nutrition Malnutrition Evidence of Malnutrition Exists Yes Malnutrition (moderate): Acute Illness/Injury Evidenced By Suboptimal Energy Intake ( Moderate),Weight Loss ( Moderate) Clinical Problem Acute Disease or Injury Related Malnutrition Etiology moderate, acute malnutrition r /t inadequate energy intake d/ t COVID-19 illness Signs/Symptoms as evidenced by unintentional wt loss of 5.2#/2.8% x 1 week, estimated PO intake meeting < 75% of estimated nutritional needs >1 week Status Active Problem Recommendation Dietitian Recommendations/Changes continue cardiac diet as ordered; will add 4oz Glucerna w/ meals d/t acute malnutrition; if PO intake continues to be poor, recommend liberalize diet to regular. If PO intake improves at meals, recommend cardiac, 1600 calorie controlled/ consistent carbohydrate diet. Lab / Micro Data Result Diagrams: 02/12/21 07:20 02/12/21 07:20 Labs: Laboratory Results - last 24 hr 02/11/21 16:38: POC Glucose 216 H 02/11/21 22:35: POC Glucose 181 H 02/12/21 07:20: WBC 17.2 H, RBC 3.24 L, Hgb 10.1 L, Hct 30.0 L, MCV 92.6, MCH 31.2, MCHC 33.7, RDW Std Deviation 43.5, RDW Coeff of Rosa 12.9, Plt Count 491 H, MPV 10.3, Immature Gran % (Auto) 0.600, Neut % (Auto) 85.4 H, Lymph % (Auto) 6.4 L, [place] % (Auto) 7.4, Eos % (Auto) 0.0, Baso % (Auto) 0.2, Absolute Neuts (auto) 14.7 H, Absolute Lymphs (auto) 1.10, Nucleated RBC % 0.1 02/12/21 07:20: Sodium 136, Potassium 4.5, Chloride 105, Carbon Dioxide 21.0, Anion Gap 10, BUN 58 H, Creatinine 1.10 H, Estim Creat Clear Calc 36.56, Est GFR (MDRD) Af Amer 63, Est GFR (MDRD) Non-Af 52 L, BUN/Creatinine Ratio 52.7 H, Glucose 173 H, Calcium 8.6, Total Bilirubin 0.40, AST 12 L, ALT 21, Alkaline Phosphatase 50, Total Protein 6.7, Albumin 2.1 L, Globulin 4.6 H, Albumin/Globulin Ratio 0.5 L 02/12/21 08:15: POC Glucose 157 H 02/12/21 11:06: POC Glucose 193 H 02/12/21 15:55: POC Glucose 301 H Physical Exam Const alert, oriented x3 and no apparent distress General Appearance: cooperative, well kempt and well developed Orientation / Consciousness: awake, oriented to person, oriented to place and oriented to time HEENT normocephalic, head/scalp atraumatic and moist oral mucous membranes Head and Scalp: normocephalic Eyes PERRL, EOMs intact bilaterally and conjunctivae normal Neck nuchal rigidity, supple, no JVD, thyroid normal and no carotid bruits General: trachea midline Resp normal respiratory effort, no retractions, no use of accessory muscles and clear to auscultation bilaterally Auscultation: Negative for rales, rhonchi or wheezes Cardio regular rate, regular rhythm, S1 normal heart sound, S2 normal heart sound, no murmurs, no rub and no gallops GI normal to inspection, nondistended, normoactive bowel sounds, soft to palpation, non-tender and non-distended Extremity no clubbing, cyanosis or edema Skin no rashes or lesions noted General Skin Exam: no breakdown Neuro oriented x3, CN's II-XII intact bilaterally, no focal motor deficits and no sensory deficits noted Sensorium / Orientation: awake and alert Speech: speech normal Psych thought process normal and affect normal Assessment & Plan Assessment/Plan (1) Pneumonia due to COVID-19 virus: PLAN: 1. COVID-19 pneumonia-patient is currently on baricitinib and dexamethasone, she has been seen by infectious diseases here. #2 acute hypoxic respiratory failure secondary to COVID-19 infection #3 moderate protein caloric malnutrition-nutritional services is seeing patient There is some concern that the patient may have a UTI, the ceftriaxone was discontinued, I will reorder a UA on the patient. Charges/Coding Visit Charges Inpatient E&M: 15840 Subs Hosp L2
[2021-02-12] MEDS: Pravastatin 40 MG Tablet PO (22:10)
[2021-02-12 22:30] LABS: Bedside Glucose 270 mg/dL (70-110)
[2021-02-13] VITALS (15 sets, daily range): BP systolic 83–122; BP diastolic 32–66; PULSE 85–97; RESP 16–18; TEMP 36.9; O2SAT 89–99
[2021-02-13 07:35] LABS: Absolute Lymphocyte Count 1.33 X10^3/uL (0.83-4.51); Absolute Neutrophil Count 21.3 X10^3/uL (2.0-7.7); Basophil# 0.05 X10^3/uL; Basophil% 0.2 % (0-1); Lymphocyte # 1.33 X10^3/ul (0.83-4.51); Lymphocyte % 5.5 % (19-41); Mean Corp Hgb Conc 33.3 g/dL (32-36); Mean Corpuscular Hgb 31.2 pg (27.0-32.0); Mean Corpuscular Volume 93.5 fL (81-99); Mean Platelet Vol. 10.1 fl (6.2-12.0); Monocyte# 1.13 X10^3/uL; Monocyte% 4.6 % (0-10); NRBC Flagged by Analyzer 0 % (0-5); Neutrophil # 21.31 X10^3/uL (2.7-7.7); Neutrophil % 87.7 % (47-70); POSITIVE DIFFERENTIAL YES; Platelet Count 504 K/mm3 (150-450); RBC Distribution Width CV 12.9 % (11.6-14.6); RBC Distribution Width SD 43.8 fl (35.1-43.9); Red Blood Count 3.53 M/mm3 (4.2-5.4); White Blood Count 24.3 K/mm3 (4.4-11.0)
[2021-02-13 07:36] LABS: Differential Indicated SCAN CRITERIA MET
[2021-02-13 08:01] LABS: ALB/GLOB Ratio 0.3 RATIO (0.9-2.4); AST(SGOT) 12 U/L (15-37); Alanine Aminotransfer ALT/SGPT 24 U/L (13-56); Albumin, Serum 1.5 g/dL (3.2-5.0); Alkaline Phosphatase 62 U/L (45-117); Anion Gap 5 (5-15); BUN 48 mg/dL (7-18); BUN/Creat Ratio 42.9 RATIO (10-20); Calcium,Total 8.7 mg/dL (8.5-10.1); Chloride 105 mmol/L (98-107); Creatinine, Serum 1.12 mg/dL (0.55-1.02); EST Glomerular Filtration Rate 51 mL/min (>60); Est Glom Filt Rate - Afr Amer 62 mL/min (>60); Estimated Creatinine Clearance 35.91 ml/min; Globulin 5.4 g/dL (2.2-4.2); Glucose 121 mg/dL (74-106); Potassium 4.7 mmol/L (3.5-5.1); Protein, Total 6.9 g/dL (6.4-8.2); Sodium Level 135 mmol/L (136-145)
[2021-02-13 08:05] LABS: Differential Comment SCANNED; Platelet Estimate MOD INC (ADEQ)
[2021-02-13] MEDS: Enoxaparin 40 MG/0.4 ML Syringe SC ×2 (08:05→21:28)
[2021-02-13] MEDS: Famotidine 20 MG Tablet PO (08:06)
[2021-02-13] MEDS: Carvedilol 6.25 MG Tablet PO (08:06)
[2021-02-13] MEDS: Aspirin 81 MG TAB.CHEW PO (08:06)
[2021-02-13] MEDS: Isosorbide Mononitrate 30 MG Tablet PO (08:07)
[2021-02-13] MEDS: dexAMETHasone 4 MG Tablet 6 MG PO (08:07)
[2021-02-13 08:21] LABS: Bedside Glucose 106 mg/dL (70-110)
[2021-02-13] MEDS: Insulin Lispro 100 UNIT/ML INSULN.PEN SC ×3 (10:49→21:28)
[2021-02-13] MEDS: Insulin Lispro 100 UNIT/ML INSULN.PEN 10 UNIT SC ×2 (10:49→15:52)
[2021-02-13 11:05] LABS: Bedside Glucose 193 mg/dL (70-110)
--- NOTE | 2021-02-13 15:29 | PCM.PN.ID ---
Physical Exam Narrative Feeling better, remains on airvo, no fever, no n/v/d. Const alert and no apparent distress General Appearance: cooperative Resp Auscultation: diminished lung sounds Cardio regular rate and regular rhythm GI normal to inspection, nondistended, normoactive bowel sounds Extremity no clubbing, cyanosis or edema Skin no rashes or lesions noted ID ID: Route of nutrition/ use of supplements: [] Nutritional Intake: [] IV Site: [] Britt Catheter: [] Assessment & Plan Assessment/Plan (1) Pneumonia due to COVID-19 virus: PLAN: Sx started 01/28/21. Isolate until 02/17/21. Recommended vaccine after discharge. On dex, baricitinib. Will follow (2) Acute respiratory failure with hypoxia:
[2021-02-13 16:15] LABS: Bedside Glucose 224 mg/dL (70-110)
[2021-02-13 18:14] LABS: Mucous, Urine 0 SEEN /hpf (<or=2+)
[2021-02-13 18:17] LABS: Color, Urine Yellow (Yellow); Glucose, Dipstick 50 mg/dl (Normal); Ketone-Dipstick 5 mg/dl (Negative); Leukocyte Esterase-Dipstick 500 /ul (Negative); Nitrite-Dipstick Positive (Negative); Occult Blood-Urine 250 /ul (Negative); Protein-Dipstick 30 mg/dl (Negative); Specific Gravity, Urine 1.025 (1.002-1.030); Urine Clarity Cloudy (Clear); Urine Urobilinogen Normal (Normal)
[2021-02-13 18:20] LABS: Urine Bilirubin Dipstick 1 mg/dL (Negative)
[2021-02-13 18:28] LABS: Squamous Epithelial Cells - UA 10-25 SEEN /hpf (5-10)
[2021-02-13 18:29] LABS: Bacteria 3+ /hpf (None Seen); White Blood Cells 0-5 SEEN /hpf (0-5)
[2021-02-13 18:31] LABS: Red Blood Cells-Urine 25-50 SEEN /hpf (0-5)
[2021-02-13 18:33] LABS: Uric Acid Crystals Ur 1+ /hpf (<or=1+)
--- NOTE | 2021-02-13 19:41 | PN.HOSP_ITS ---
Subjective Subjective Patient was seen and examined today, she appears comfortable at rest, currently she is on Airvo. Objective Data Objective Data Vital Signs: Vital Signs Temp Pulse Resp BP Pulse Ox 98.4 F 85 18 106/66 96 02/13/21 15:48 02/13/21 15:52 02/13/21 15:48 02/13/21 15:48 02/13/21 15:48 Oxygen Flow Rate (L/min) 55 Oxygen Delivery Method Airvo Weight: 80.2 kg Body Mass Index (BMI) 32.3 Intake & Output: Intake and Output for Last 24 Hours 02/11/21 02/12/21 02/13/21 23:59 23:59 23:59 Intake Total 1070 / 1070 940 / 940 980 / 980 Output Total 950 / 950 700 / 700 150 / 150 Balance 120 / 120 240 / 240 830 / 830 Medical Nutrition Assessment Dietitian: Malnutrition Criteria Met Start: 02/09/21 11:39 Freq: Status: Active Protocol: Document 02/09/21 11:39 AG (Rec: 02/09/21 11:39 AG Desktop) Nutrition Malnutrition Evidence of Malnutrition Exists Yes Malnutrition (moderate): Acute Illness/Injury Evidenced By Suboptimal Energy Intake ( Moderate),Weight Loss ( Moderate) Clinical Problem Acute Disease or Injury Related Malnutrition Etiology moderate, acute malnutrition r /t inadequate energy intake d/ t COVID-19 illness Signs/Symptoms as evidenced by unintentional wt loss of 5.2#/2.8% x 1 week, estimated PO intake meeting < 75% of estimated nutritional needs >1 week Status Active Problem Recommendation Dietitian Recommendations/Changes continue cardiac diet as ordered; will add 4oz Glucerna w/ meals d/t acute malnutrition; if PO intake continues to be poor, recommend liberalize diet to regular. If PO intake improves at meals, recommend cardiac, 1600 calorie controlled/ consistent carbohydrate diet. Lab / Micro Data Result Diagrams: 02/14/21 06:56 02/14/21 06:56 Labs: Laboratory Results - last 24 hr 02/12/21 22:11: POC Glucose 270 H 02/13/21 07:20: WBC 24.3 H, RBC 3.53 L, Hgb 11.0 L, Hct 33.0 L, MCV 93.5, MCH 31.2, MCHC 33.3, RDW Std Deviation 43.8, RDW Coeff of Rosa 12.9, Plt Count 504 H, MPV 10.1, Immature Gran % (Auto) 2.000 H, Neut % (Auto) 87.7 H, Lymph % (Auto) 5.5 L, [place] % (Auto) 4.6, Eos % (Auto) 0.0, Baso % (Auto) 0.2, Absolute Neuts (auto) 21.3 H, Absolute Lymphs (auto) 1.33, Nucleated RBC % 0, Differential Comment SCANNED, Platelet Estimate MOD INC 02/13/21 07:20: Sodium 135 L, Potassium 4.7, Chloride 105, Carbon Dioxide 25.0, Anion Gap 5, BUN 48 H, Creatinine 1.12 H, Estim Creat Clear Calc 35.91, Est GFR (MDRD) Af Amer 62, Est GFR (MDRD) Non-Af 51 L, BUN/Creatinine Ratio 42.9 H, Glucose 121 H, Calcium 8.7, Total Bilirubin 0.40, AST 12 L, ALT 24, Alkaline Phosphatase 62, Total Protein 6.9, Albumin 1.5 L, Globulin 5.4 H, Albumin/Globulin Ratio 0.3 L 02/13/21 07:57: POC Glucose 106 02/13/21 10:48: POC Glucose 193 H 02/13/21 15:46: POC Glucose 224 H 02/13/21 18:05: Urine Color Yellow, Urine Clarity Cloudy, Urine pH 6.0, Ur Specific [place] 1.025, Urine Protein 30 H, Urine Glucose (UA) 50 H, Urine Ketones 5 H, Urine Occult Blood 250 H, Urine Nitrite Positive H, Urine Bilirubin 1 H, Urine Urobilinogen Normal, Ur Leukocyte Esterase 500 H, Urine RBC 25-50 SEEN, Urine WBC 0-5 SEEN, Ur Squamous Epith Cells 10-25 SEEN, Uric Acid Crystals 1+, Urine Bacteria 3+, Urine Mucus 0 SEEN Physical Exam Const alert, oriented x3, no apparent distress and healthy appearing General Appearance: cooperative, well kempt and well developed Orientation / Consciousness: awake, oriented to person, oriented to place and oriented to time HEENT normocephalic, head/scalp atraumatic and moist oral mucous membranes Head and Scalp: normocephalic Eyes PERRL, EOMs intact bilaterally and conjunctivae normal Neck nuchal rigidity, supple, no JVD, thyroid normal and no carotid bruits General: trachea midline Resp normal respiratory effort and clear to auscultation bilaterally Auscultation: Negative for rales, rhonchi or wheezes Cardio regular rate, regular rhythm, S1 normal heart sound, S2 normal heart sound, no murmurs, no rub and no gallops GI normal to inspection, nondistended, normoactive bowel sounds, soft to palpation, non-tender and non-distended Extremity normal to inspection and no clubbing, cyanosis or edema Skin no rashes or lesions noted General Skin Exam: no breakdown Neuro oriented x3, CN's II-XII intact bilaterally, no focal motor deficits and no sensory deficits noted Sensorium / Orientation: awake and alert Speech: speech normal Psych thought process normal and affect normal Assessment & Plan Assessment/Plan (1) Pneumonia due to COVID-19 virus: PLAN: 1. COVID-19 pneumonia-patient is currently on baricitinib and dexamethasone, she has been seen by infectious diseases here. #2 acute hypoxic respiratory failure secondary to COVID-19 infection #3 moderate protein caloric malnutrition-nutritional services is seeing patient
[2021-02-13] MEDS: Pravastatin 40 MG Tablet PO (21:29)
[2021-02-13 21:36] LABS: Bedside Glucose 185 mg/dL (70-110)
[2021-02-14] VITALS (18 sets, daily range): BP systolic 96–122; BP diastolic 57–74; PULSE 75–116; RESP 18–26; TEMP 36.4–37.2; O2SAT 90–97
[2021-02-14 07:12] LABS: Absolute Lymphocyte Count 1.53 X10^3/uL (0.83-4.51); Absolute Neutrophil Count 27.8 X10^3/uL (2.0-7.7); Basophil# 0.07 X10^3/uL; Basophil% 0.2 % (0-1); Eosinophil# 0.01 X10^3/uL; Hematocrit 31.7 % (37-47); Hemoglobin 10.7 g/dL (12.0-15.0); Lymphocyte # 1.53 X10^3/ul (0.83-4.51); Lymphocyte % 4.8 % (19-41); Mean Corp Hgb Conc 33.8 g/dL (32-36); Mean Corpuscular Volume 91.9 fL (81-99); Mean Platelet Vol. 10.2 fl (6.2-12.0); Monocyte# 1.39 X10^3/uL; Monocyte% 4.4 % (0-10); NRBC Flagged by Analyzer 0 % (0-5); Neutrophil # 27.81 X10^3/uL (2.7-7.7); Neutrophil % 87.3 % (47-70); POSITIVE COUNT YES; POSITIVE DIFFERENTIAL YES; Platelet Count 484 K/mm3 (150-450); RBC Distribution Width CV 12.9 % (11.6-14.6); RBC Distribution Width SD 43.2 fl (35.1-43.9); Red Blood Count 3.45 M/mm3 (4.2-5.4); White Blood Count 31.9 K/mm3 (4.4-11.0)
[2021-02-14 07:17] LABS: Differential Indicated SCAN CRITERIA MET
[2021-02-14 08:00] LABS: BNP,B-Type NATRIURETIC PEPTIDE 13.2 pg/mL (0-100)
[2021-02-14 08:04] LABS: ALB/GLOB Ratio 0.4 RATIO (0.9-2.4); AST(SGOT) 17 U/L (15-37); Alanine Aminotransfer ALT/SGPT 43 U/L (13-56); Albumin, Serum 1.9 g/dL (3.2-5.0); Alkaline Phosphatase 63 U/L (45-117); Anion Gap 7 (5-15); BUN 55 mg/dL (7-18); BUN/Creat Ratio 53.4 RATIO (10-20); Calcium,Total 8.5 mg/dL (8.5-10.1); Chloride 104 mmol/L (98-107); Creatinine, Serum 1.03 mg/dL (0.55-1.02); EST Glomerular Filtration Rate 56 mL/min (>60); Est Glom Filt Rate - Afr Amer 68 mL/min (>60); Estimated Creatinine Clearance 39.05 ml/min; Globulin 4.4 g/dL (2.2-4.2); Glucose 126 mg/dL (74-106); Potassium 4.4 mmol/L (3.5-5.1); Protein, Total 6.3 g/dL (6.4-8.2); Sodium Level 134 mmol/L (136-145)
[2021-02-14 08:07] LABS: D-Dimer Quantitative (DVT/PE) 0.74 FEU/ug/m (0.27-0.49)
[2021-02-14 08:08] LABS: Procalcitonin 0.15 ng/mL (0.00-0.09)
[2021-02-14] MEDS: Aspirin 81 MG TAB.CHEW PO (08:21)
[2021-02-14] MEDS: Famotidine 20 MG Tablet PO (08:21)
[2021-02-14] MEDS: Carvedilol 6.25 MG Tablet PO (08:22)
[2021-02-14] MEDS: Enoxaparin 40 MG/0.4 ML Syringe SC ×2 (08:22→22:55)
[2021-02-14] MEDS: Isosorbide Mononitrate 30 MG Tablet PO (08:22)
[2021-02-14 08:30] LABS: Bedside Glucose 113 mg/dL (70-110)
[2021-02-14] MEDS: Insulin Lispro 100 UNIT/ML INSULN.PEN SC ×3 (11:15→22:55)
[2021-02-14] MEDS: Insulin Lispro 100 UNIT/ML INSULN.PEN 10 UNIT SC ×2 (11:16→16:18)
[2021-02-14 11:30] LABS: Bedside Glucose 202 mg/dL (70-110)
[2021-02-14 16:50] LABS: Bedside Glucose 213 mg/dL (70-110)
--- NOTE | 2021-02-14 17:56 | PN.HOSP_ITS ---
Subjective Subjective Patient was seen and examined today, she does not look dyspneic at rest, she does not complain of any fevers or chills. Patient currently is on Airvo. Objective Data Objective Data Vital Signs: Vital Signs Temp Pulse Resp BP Pulse Ox 97.6 F L 111 H 26 H 116/65 94 02/14/21 14:15 02/14/21 17:00 02/14/21 17:00 02/14/21 14:15 02/14/21 17:00 Oxygen Flow Rate (L/min) 55 Oxygen Delivery Method Airvo Weight: 80.2 kg Body Mass Index (BMI) 32.3 Intake & Output: Intake and Output for Last 24 Hours 02/12/21 02/13/21 02/14/21 23:59 23:59 23:59 Intake Total 940 / 940 980 / 980 240 / 240 Output Total 700 / 700 150 / 150 Balance 240 / 240 830 / 830 240 / 240 Medical Nutrition Assessment Dietitian: Malnutrition Criteria Met Start: 02/09/21 11:39 Freq: Status: Active Protocol: Document 02/09/21 11:39 AG (Rec: 02/09/21 11:39 AG Desktop) Nutrition Malnutrition Evidence of Malnutrition Exists Yes Malnutrition (moderate): Acute Illness/Injury Evidenced By Suboptimal Energy Intake ( Moderate),Weight Loss ( Moderate) Clinical Problem Acute Disease or Injury Related Malnutrition Etiology moderate, acute malnutrition r /t inadequate energy intake d/ t COVID-19 illness Signs/Symptoms as evidenced by unintentional wt loss of 5.2#/2.8% x 1 week, estimated PO intake meeting < 75% of estimated nutritional needs >1 week Status Active Problem Recommendation Dietitian Recommendations/Changes continue cardiac diet as ordered; will add 4oz Glucerna w/ meals d/t acute malnutrition; if PO intake continues to be poor, recommend liberalize diet to regular. If PO intake improves at meals, recommend cardiac, 1600 calorie controlled/ consistent carbohydrate diet. Lab / Micro Data Result Diagrams: 02/14/21 06:56 02/14/21 06:56 Labs: Laboratory Results - last 24 hr 02/13/21 18:05: Urine Color Yellow, Urine Clarity Cloudy, Urine pH 6.0, Ur Specific [place] 1.025, Urine Protein 30 H, Urine Glucose (UA) 50 H, Urine Ketones 5 H, Urine Occult Blood 250 H, Urine Nitrite Positive H, Urine Bilirubin 1 H, Urine Urobilinogen Normal, Ur Leukocyte Esterase 500 H, Urine RBC 25-50 SEEN, Urine WBC 0-5 SEEN, Ur Squamous Epith Cells 10-25 SEEN, Uric Acid Crystals 1+, Urine Bacteria 3+, Urine Mucus 0 SEEN 02/13/21 21:27: POC Glucose 185 H 02/14/21 06:56: WBC 31.9 H*, RBC 3.45 L, Hgb 10.7 L, Hct 31.7 L, MCV 91.9, MCH 31.0, MCHC 33.8, RDW Std Deviation 43.2, RDW Coeff of Rosa 12.9, Plt Count 484 H, MPV 10.2, Immature Gran % (Auto) 3.300 H, Neut % (Auto) 87.3 H, Lymph % (Auto) 4.8 L, [place] % (Auto) 4.4, Eos % (Auto) 0.0, Baso % (Auto) 0.2, Absolute Neuts (auto) 27.8 H, Absolute Lymphs (auto) 1.53, Nucleated RBC % 0, Diff Path Review July02/14/21 06:56: Sodium 134 L, Potassium 4.4, Chloride 104, Carbon Dioxide 23.0, Anion Gap 7, BUN 55 H, Creatinine 1.03 H, Estim Creat Clear Calc 39.05, Est GFR (MDRD) Af Amer 68, Est GFR (MDRD) Non-Af 56 L, BUN/Creatinine Ratio 53.4 H, Glucose 126 H, Calcium 8.5, Total Bilirubin 0.30, AST 17, ALT 43, Alkaline P hosphatase 63, Total Protein 6.3 L, Albumin 1.9 L, Globulin 4.4 H, Albumin/Globulin Ratio 0.4 L 02/14/21 06:56: D-Dimer Quant (PE/DVT) 0.74 H* 02/14/21 06:56: B-Natriuretic Peptide 13.2 02/14/21 06:56: Procalcitonin 0.15 H 02/14/21 08:06: POC Glucose 113 H 02/14/21 11:14: POC Glucose 202 H 02/14/21 16:14: POC Glucose 213 H Physical Exam Const alert, oriented x3, no apparent distress and healthy appearing General Appearance: cooperative, well kempt and well developed Orientation / Consciousness: awake, oriented to person, oriented to place and oriented to time HEENT normocephalic, head/scalp atraumatic and moist oral mucous membranes Head and Scalp: normocephalic Eyes PERRL, EOMs intact bilaterally and conjunctivae normal Neck nuchal rigidity, supple, no JVD, thyroid normal and no carotid bruits General: trachea midline Resp normal respiratory effort, no retractions, no use of accessory muscles and clear to auscultation bilaterally Auscultation: Negative for rales, rhonchi or wheezes Cardio regular rate, regular rhythm, S1 normal heart sound, S2 normal heart sound, no murmurs, no rub and no gallops GI normal to inspection, nondistended, normoactive bowel sounds, soft to palpation, non-tender and non-distended Extremity no clubbing, cyanosis or edema Skin no rashes or lesions noted, skin turgor normal and no jaundice General Skin Exam: no breakdown Neuro oriented x3, CN's II-XII intact bilaterally, no focal motor deficits and no sensory deficits noted Sensorium / Orientation: awake and alert Speech: speech normal Psych thought process normal and affect normal Assessment & Plan Assessment/Plan (1) Pneumonia due to COVID-19 virus: PLAN: 1. COVID-19 pneumonia-patient is currently on baricitinib , she has been seen by infectious diseases here. #2 acute hypoxic respiratory failure secondary to COVID-19 infection #3 moderate protein caloric malnutrition-nutritional services is seeing patient Patient UA yesterday was not a clean-catch, she has no symptoms of urinary tract infection at this time, I do not feel that she warrants any antibiotics for UTI at this time. Charges/Coding Visit Charges Inpatient E&M: 79829 Subs Hosp L2
[2021-02-14] MEDS: Pravastatin 40 MG Tablet PO (22:55)
[2021-02-14 23:06] LABS: Bedside Glucose 181 mg/dL (70-110)
[2021-02-15] VITALS (19 sets, daily range): BP systolic 98–120; BP diastolic 52–65; PULSE 91–105; RESP 18–28; TEMP 36.6–37; O2SAT 90–99
--- NOTE | 2021-02-15 06:59 | NURSING ---
Pt didnt urinate overnight, bladder scanned pt for 560. Assisted pt to the BSC was able to urinate for 500. Pt desats quickly on airvo 55L. Might need bump before getting up. Purewick is replaced at this time.
[2021-02-15 07:10] LABS: Bedside Glucose 142 mg/dL (70-110)
[2021-02-15] MEDS: Carvedilol 6.25 MG Tablet PO (09:07)
[2021-02-15] MEDS: Aspirin 81 MG TAB.CHEW PO (09:07)
[2021-02-15] MEDS: Famotidine 20 MG Tablet PO (09:07)
[2021-02-15] MEDS: Isosorbide Mononitrate 30 MG Tablet PO (09:07)
[2021-02-15] MEDS: Enoxaparin 40 MG/0.4 ML Syringe SC ×2 (09:09→20:40)
[2021-02-15 11:20] LABS: Bedside Glucose 151 mg/dL (70-110)
[2021-02-15 16:35] LABS: Bedside Glucose 138 mg/dL (70-110)
--- NOTE | 2021-02-15 19:45 | PCM.PN.HOSP ---
Subjective Subjective Patient was seen and examined today, she is currently still on Airvo, she does not complain of any shortness of breath at rest. I have encouraged her to assume prone position while she is lying in bed. Objective Data Objective Data Vital Signs: Vital Signs Temp Pulse Resp BP Pulse Ox 98.2 F 91 18 110/52 L 95 02/15/21 14:25 02/15/21 19:21 02/15/21 14:25 02/15/21 14:25 02/15/21 15:17 Oxygen Flow Rate (L/min) 13 Oxygen Delivery Method Nasal Cannula Weight: 80.2 kg Body Mass Index (BMI) 32.3 Intake & Output: Intake and Output for Last 24 Hours 02/13/21 02/14/21 02/15/21 23:59 23:59 23:59 Intake Total 980 / 980 360 / 600 580 / 580 Output Total 150 / 150 900 / 900 Balance 830 / 830 360 / 600 -320 / -320 Medical Nutrition Assessment Dietitian: Malnutrition Criteria Met Start: 02/09/21 11:39 Freq: Status: Active Protocol: Document 02/09/21 11:39 AG (Rec: 02/09/21 11:39 AG Desktop) Nutrition Malnutrition Evidence of Malnutrition Exists Yes Malnutrition (moderate): Acute Illness/Injury Evidenced By Suboptimal Energy Intake ( Moderate),Weight Loss ( Moderate) Clinical Problem Acute Disease or Injury Related Malnutrition Etiology moderate, acute malnutrition r /t inadequate energy intake d/ t COVID-19 illness Signs/Symptoms as evidenced by unintentional wt loss of 5.2#/2.8% x 1 week, estimated PO intake meeting < 75% of estimated nutritional needs >1 week Status Active Problem Recommendation Dietitian Recommendations/Changes continue cardiac diet as ordered; will add 4oz Glucerna w/ meals d/t acute malnutrition; if PO intake continues to be poor, recommend liberalize diet to regular. If PO intake improves at meals, recommend cardiac, 1600 calorie controlled/ consistent carbohydrate diet. Lab / Micro Data Result Diagrams: 02/14/21 06:56 02/14/21 06:56 Labs: Laboratory Results - last 24 hr 02/14/21 22:53: POC Glucose 181 H 02/15/21 06:41: POC Glucose 142 H 02/15/21 11:14: POC Glucose 151 H 02/15/21 16:16: POC Glucose 138 H Physical Exam Const alert, oriented x3, no apparent distress and healthy appearing General Appearance: cooperative, well kempt and well developed Orientation / Consciousness: awake, oriented to person, oriented to place and oriented to time HEENT normocephalic, head/scalp atraumatic and moist oral mucous membranes Head and Scalp: normocephalic Eyes PERRL, EOMs intact bilaterally and conjunctivae normal Neck nuchal rigidity, supple, no JVD and thyroid normal General: trachea midline Resp normal respiratory effort, no retractions, no use of accessory muscles and clear to auscultation bilaterally Auscultation: Negative for rales, rhonchi or wheezes Cardio regular rate, regular rhythm, S1 normal heart sound, S2 normal heart sound, no murmurs, no rub and no gallops GI normal to inspection, nondistended, normoactive bowel sounds, soft to palpation, non-tender and non-distended Extremity no clubbing, cyanosis or edema Skin no rashes or lesions noted General Skin Exam: no breakdown Neuro oriented x3, CN's II-XII intact bilaterally, no focal motor deficits and no sensory deficits noted Sensorium / Orientation: awake and alert Speech: speech normal Psych thought process normal and affect normal Assessment & Plan Assessment/Plan (1) Pneumonia due to COVID-19 virus: PLAN: 1. COVID-19 pneumonia-patient is currently on baricitinib , she has been seen by infectious diseases here. Patient is no longer on dexamethasone. #2 acute hypoxic respiratory failure secondary to COVID-19 infection #3 moderate protein caloric malnutrition-nutritional services is seeing patient Charges/Coding Visit Charges Inpatient E&M: 70484 Subs Hosp L2
[2021-02-15] MEDS: Pravastatin 40 MG Tablet PO (20:40)
[2021-02-15 21:50] LABS: Bedside Glucose 126 mg/dL (70-110)
[2021-02-16] VITALS (15 sets, daily range): BP systolic 98–128; BP diastolic 48–64; PULSE 86–100; RESP 18–22; TEMP 36.4–37.1; O2SAT 94–99
--- NOTE | 2021-02-16 05:37 | NURSING ---
RN came into room, patient o2 was off 75% O2 placed back on AIRVO at this time due to not coming back up on NC, tolerating well
--- NOTE | 2021-02-16 06:05 | NURSING ---
RN called respiratory to updated about patient being put back on AIRVO, went in and placed pt back on 10LNC.
[2021-02-16] MEDS: Isosorbide Mononitrate 30 MG Tablet PO (08:53)
[2021-02-16] MEDS: Enoxaparin 40 MG/0.4 ML Syringe SC ×2 (08:53→20:52)
[2021-02-16] MEDS: Aspirin 81 MG TAB.CHEW PO (08:53)
[2021-02-16] MEDS: Famotidine 20 MG Tablet PO (08:53)
[2021-02-16] MEDS: Carvedilol 6.25 MG Tablet PO (08:53)
[2021-02-16 09:06] LABS: Bedside Glucose 113 mg/dL (70-110)
[2021-02-16] MEDS: Insulin Lispro 100 UNIT/ML INSULN.PEN SC ×2 (12:09→20:51)
[2021-02-16 12:21] LABS: Bedside Glucose 246 mg/dL (70-110)
--- NOTE | 2021-02-16 16:51 | PCM.PN.HOSP ---
Subjective Subjective Patient on high flow oxygen, air Vo. Currently on 10 L of oxygen. Short of breath. Objective Data Objective Data Vital Signs: Vital Signs Temp Pulse Resp BP Pulse Ox 97.6 F L 96 22 H 114/48 L 99 02/16/21 12:06 02/16/21 15:07 02/16/21 12:06 02/16/21 12:06 02/16/21 14:10 Oxygen Flow Rate (L/min) 10 Oxygen Delivery Method Airvo Weight: 176 lb 12.972 oz Body Mass Index (BMI) 32.3 Intake & Output: Intake and Output for Last 24 Hours 02/14/21 02/15/21 02/16/21 23:59 23:59 23:59 Intake Total 360 / 600 580 / 680 640 / 640 Output Total 900 / 900 Balance 360 / 600 -320 / -220 640 / 640 Medical Nutrition Assessment Dietitian: Malnutrition Criteria Met Start: 02/09/21 11:39 Freq: Status: Active Protocol: Document 02/09/21 11:39 AG (Rec: 02/09/21 11:39 AG Desktop) Nutrition Malnutrition Evidence of Malnutrition Exists Yes Malnutrition (moderate): Acute Illness/Injury Evidenced By Suboptimal Energy Intake ( Moderate),Weight Loss ( Moderate) Clinical Problem Acute Disease or Injury Related Malnutrition Etiology moderate, acute malnutrition r /t inadequate energy intake d/ t COVID-19 illness Signs/Symptoms as evidenced by unintentional wt loss of 5.2#/2.8% x 1 week, estimated PO intake meeting < 75% of estimated nutritional needs >1 week Status Active Problem Recommendation Dietitian Recommendations/Changes continue cardiac diet as ordered; will add 4oz Glucerna w/ meals d/t acute malnutrition; if PO intake continues to be poor, recommend liberalize diet to regular. If PO intake improves at meals, recommend cardiac, 1600 calorie controlled/ consistent carbohydrate diet. Lab / Micro Data Result Diagrams: 02/14/21 06:56 02/14/21 06:56 Labs: Laboratory Results - last 24 hr 02/15/21 20:36: POC Glucose 126 H 02/16/21 08:45: POC Glucose 113 H 02/16/21 12:00: POC Glucose 246 H Physical Exam Narrative General: Awake but fatigue due to shortness of breath and tachypnea HEENT: Atraumatic, PERRLA, EOMI, Normocephalic Oral: No Gingival or Mucosal Lesions/ Ulcerations Neck: Supple, No JVD, Negative Carotid Bruits Lungs: Air entry diminished in bilateral lung bases. Bilateral expiratory rhonchi and crepitations Cardiovascular: Regular rate, Regular Rhythm, Normal S1, Normal S2, No murmurs Abdomen: Bowel Sounds Present, Soft, Non Tender, Non-Distended : No renal angle tenderness. No suprapubic tenderness. Extremities: No edema, Capillary Refill Less than 3 Seconds Skin: No rashes, No breakdown Musculoskeletal: No Tenderness to Palpation of Joints or Extremities Neurological: Cranial nerves II-XII grossly intact, DTR 2+/4 and Symmetrical, Neuro grossly intact Psych/Mental Status: Flat affect. Assessment & Plan Assessment/Plan (1) Pneumonia due to COVID-19 virus: PLAN: 1. Acute hypoxic respiratory failure due to bilateral COVID-19 pneumonia-patient is currently on baricitinib. Patient is being followed by ID. The patient completed dexamethasone. On baricitinib #2 acute hypoxic respiratory failure secondary to COVID-19 infection #3 moderate protein caloric malnutrition-nutritional services is seeing patient. Patient is being seen by nutritional service. On nutritional supplement Charges/Coding Visit Charges Inpatient E&M: 71217 Subs Hosp L2
[2021-02-16 17:05] LABS: Bedside Glucose 100 mg/dL (70-110)
[2021-02-16] MEDS: Pravastatin 40 MG Tablet PO (20:52)
[2021-02-16 21:20] LABS: Bedside Glucose 164 mg/dL (70-110)
[2021-02-17] VITALS (12 sets, daily range): BP systolic 97–113; BP diastolic 48–58; PULSE 89–111; RESP 19–20; TEMP 36.6–37.2; O2SAT 87–100
[2021-02-17 08:03] LABS: Hematocrit 29.5 % (37-47); Hemoglobin 10.1 g/dL (12.0-15.0); Mean Corp Hgb Conc 34.2 g/dL (32-36); Mean Corpuscular Hgb 31.7 pg (27.0-32.0); Mean Corpuscular Volume 92.5 fL (81-99); Mean Platelet Vol. 10.5 fl (6.2-12.0); Platelet Count 485 K/mm3 (150-450); RBC Distribution Width CV 12.7 % (11.6-14.6); RBC Distribution Width SD 42.7 fl (35.1-43.9); Red Blood Count 3.19 M/mm3 (4.2-5.4); White Blood Count 25.8 K/mm3 (4.4-11.0)
[2021-02-17] MEDS: Aspirin 81 MG TAB.CHEW PO (08:30)
[2021-02-17] MEDS: Enoxaparin 40 MG/0.4 ML Syringe SC ×2 (08:30→21:19)
[2021-02-17] MEDS: Isosorbide Mononitrate 30 MG Tablet PO (08:30)
[2021-02-17] MEDS: Carvedilol 6.25 MG Tablet PO (08:30)
[2021-02-17 08:31] LABS: ALB/GLOB Ratio 0.4 RATIO (0.9-2.4); AST(SGOT) 35 U/L (15-37); Alanine Aminotransfer ALT/SGPT 99 U/L (13-56); Albumin, Serum 1.7 g/dL (3.2-5.0); Alkaline Phosphatase 95 U/L (45-117); Anion Gap 6 (5-15); BUN 38 mg/dL (7-18); BUN/Creat Ratio 37.6 RATIO (10-20); Calcium,Total 8.1 mg/dL (8.5-10.1); Chloride 102 mmol/L (98-107); Creatinine, Serum 1.01 mg/dL (0.55-1.02); EST Glomerular Filtration Rate 57 mL/min (>60); Est Glom Filt Rate - Afr Amer 69 mL/min (>60); Estimated Creatinine Clearance 39.82 ml/min; Globulin 4.2 g/dL (2.2-4.2); Glucose 116 mg/dL (74-106); Potassium 4.2 mmol/L (3.5-5.1); Protein, Total 5.9 g/dL (6.4-8.2); Sodium Level 131 mmol/L (136-145)
[2021-02-17] MEDS: Famotidine 20 MG Tablet PO (08:31)
[2021-02-17 08:40] LABS: Bedside Glucose 145 mg/dL (70-110)
--- NOTE | 2021-02-17 10:47 | CASEMGMT ---
Per RN patient and her daughter are discussing d/c options. JAMIE met with patient and her daughter. Introduced self and role at [facility]. Patient's daughter asked if home health is paid for by insurance and if patient could have home health when she is discharged. JAMIE explained that home health is covered by insurance. JAMIE explained that therapy would be out a couple of times a week and a nurse maybe once a week. They felt like that would be great for patient. JAMIE let them know JAMIE will notify LINDA BELLA. JAMIE notified RN JENA Gray Plan: Home with home health. Brook MUNSON
[2021-02-17] MEDS: Insulin Lispro 100 UNIT/ML INSULN.PEN SC (12:26)
[2021-02-17 12:35] LABS: Bedside Glucose 171 mg/dL (70-110)
--- NOTE | 2021-02-17 13:04 | CASEMGMT ---
Addendum entered by Shari Jean 02/17/21 16:16: Per Jarocho, he would have called this RN CM if they could not accept pt so pt set up with [facility] at this time. Maria Luisa MCKEON CM Addendum entered by Shari Jean 02/17/21 14:15: Call from [facility] and they are unable to accept pt. Call from Jarocho at [facility] and he states they are reviewing referral and may be able to accept. Maria Luisa MCKEON CM Addendum entered by Shari Jean 02/17/21 13:33: Referral faxed to [facility], [facility], and [facility] at this time. Maria Luisa MCKEON CM Original Note: This RN CM to room, daughter at bedside, to discuss discharge plan. Pt states would like to go home with [facility] and state no preference on HHC company after provided list of local [facility] agencies. Pt also states no preference for DME company. CM to fax [facility] referrals for SN, PT/OT and order placed. Maria Luisa MCKEON CM
--- NOTE | 2021-02-17 15:31 | PCM.PN.HOSP ---
Subjective Subjective Patient oxygen requirement has come down. Was on 10 L currently on 5 L of oxygen. Discussed with the patient's daughter near the bedside. No fever. Objective Data Objective Data Vital Signs: Vital Signs Temp Pulse Resp BP Pulse Ox 97.8 F 102 H 20 H 101/57 L 99 02/17/21 15:19 02/17/21 15:19 02/17/21 15:19 02/17/21 15:19 02/17/21 15:19 Oxygen Flow Rate (L/min) 5 Oxygen Delivery Method Nasal Cannula Weight: 176 lb 12.972 oz Body Mass Index (BMI) 32.3 Intake & Output: Intake and Output for Last 24 Hours 02/15/21 02/16/21 02/17/21 23:59 23:59 23:59 Intake Total 580 / 680 1000 / 1060 540 / 540 Output Total 900 / 900 0 / 0 Balance -320 / -220 1000 / 1060 540 / 540 Medical Nutrition Assessment Dietitian: Malnutrition Criteria Met Start: 02/09/21 11:39 Freq: Status: Active Protocol: Document 02/17/21 12:10 RMA (Rec: 02/17/21 12:10 RMA [id number]) Nutrition Malnutrition Evidence of Malnutrition Exists Yes Malnutrition (moderate): Acute Illness/Injury Evidenced By Suboptimal Energy Intake ( Moderate),Weight Loss ( Moderate) Clinical Problem Acute Disease or Injury Related Malnutrition Etiology moderate, acute malnutrition r /t inadequate energy intake d/ t COVID-19 illness Signs/Symptoms as evidenced by unintentional wt loss of 5.2#/2.8% x 1 week, estimated PO intake meeting < 50% of estimated nutritional needs >1 week Status Active Problem Recommendation Dietitian Recommendations/Changes Will continue liberalize diet to Regular w/ fortified foods d/t s/s of malnutrition; encourage improved intake at meals. Will d/c glucerna shake w/ meals d/t pt dislike and refusals. No new weight to assess--- suspect additional wt loss since admit as pt is not consuming adequate nutrition at meals and refusing oral nutrition supplements. Lab / Micro Data Result Diagrams: 02/17/21 07:21 02/17/21 07:21 Labs: Laboratory Results - last 24 hr 02/16/21 16:55: POC Glucose 100 02/16/21 20:50: POC Glucose 164 H 02/17/21 07:21: WBC 25.8 H, RBC 3.19 L, Hgb 10.1 L, Hct 29.5 L, MCV 92.5, MCH 31.7, MCHC 34.2, RDW Std Deviation 42.7, RDW Coeff of Rosa 12.7, Plt Count 485 H, MPV 10.5 02/17/21 07:21: Sodium 131 L, Potassium 4.2, Chloride 102, Carbon Dioxide 23.0, Anion Gap 6, BUN 38 H, Creatinine 1.01, Estim Creat Clear Calc 39.82, Est GFR (MDRD) Af Amer 69, Est GFR (MDRD) Non-Af 57 L, BUN/Creatinine Ratio 37.6 H, Glucose 116 H, Calcium 8.1 L, Total Bilirubin 0.50, AST 35, ALT 99 H, Alkaline Phosphatase 95, Total Protein 5.9 L, Albumin 1.7 L, Globulin 4.2, Albumin/Globulin Ratio 0.4 L 02/17/21 08:28: POC Glucose 145 H 02/17/21 12:25: POC Glucose 171 H Physical Exam Narrative General: Awake but fatigue due to shortness of breath and tachypnea HEENT: Atraumatic, PERRLA, EOMI, Normocephalic Oral: No Gingival or Mucosal Lesions/ Ulcerations Neck: Supple, No JVD, Negative Carotid Bruits Lungs: Air entry diminished in bilateral lung bases. Bilateral expiratory rhonchi and crepitations Cardiovascular: Mild sinus tachycardia., Normal S1, Normal S2, No murmurs Abdomen: Bowel Sounds Present, Soft, Non Tender, Non-Distended : No renal angle tenderness. No suprapubic tenderness. Extremities: No edema, Capillary Refill Less than 3 Seconds Skin: No rashes, No breakdown Musculoskeletal: No Tenderness to Palpation of Joints or Extremities Neurological: Cranial nerves II-XII grossly intact, DTR 2+/4 and Symmetrical, Neuro grossly intact Psych/Mental Status: Flat affect. Assessment & Plan Assessment/Plan (1) Pneumonia due to COVID-19 virus: PLAN: 1. Acute hypoxic respiratory failure due to bilateral COVID-19 pneumonia-patient is currently on baricitinib. Patient is being followed by ID. The patient completed dexamethasone. On baricitinib 02/17: Patient is out of isolation. I talked to the patient's daughter near the bedside and we agreed for possible discharge tomorrow. Today preparation for discharge with ambulation, encourage incentive spirometry and prone positioning. #2 acute hypoxic respiratory failure secondary to COVID-19 infection #3 moderate protein caloric malnutrition-nutritional services is seeing patient. Patient is being seen by nutritional service. On nutritional supplement DVT prophylaxis: Lovenox 40 g subcu twice daily Charges/Coding Visit Charges Inpatient E&M: 68543 Subs Hosp L2
[2021-02-17] MEDS: guaiFENesin/D-Methorphan TAB.SR.12H 1 TABLET PO ×2 (16:35→21:19)
[2021-02-17 16:36] LABS: Bedside Glucose 148 mg/dL (70-110)
[2021-02-17] MEDS: Pravastatin 40 MG Tablet PO (21:19)
[2021-02-17 21:30] LABS: Bedside Glucose 127 mg/dL (70-110)
[2021-02-18 03:00] VITALS: PULSE 86
[2021-02-18 03:06] VITALS: BP 98/52; PULSE 89; RESP 18; TEMP 36.6; O2SAT 97
[2021-02-18 07:00] VITALS: PULSE 77
[2021-02-18 08:42] VITALS: BP 121/53; PULSE 100; RESP 26; TEMP 37.1; O2SAT 91
[2021-02-18 08:43] VITALS: O2SAT 86; O2SAT 90; O2SAT 91
[2021-02-18 09:14] LABS: Pathologist Review Reviewed
--- NOTE | 2021-02-18 11:03 | PCM.DC ---
Discharge Instructions Diet Discharge Diet: No restrictions Activity Discharge Activity: Return to Normal Activity and May Not Drive Follow Up Care Test Results: Test results from this visit will be discussed in further detail at your follow-up appointment, if applicable. Discharge Plan Admission Admit Date/Time: 02/08/21 17:19 Attending Provider: David Monteiro Consulting Providers: Raad Arias Instructions Additional Instructions / Restrictions: Advised Covid vaccination within 1 week. Her symptom onset was 02/01/2021 Discharge Orders/Prescriptions Prescriptions: New Mucus DM 30-600 mg Tablet Extended Release 12 Hr 1 tab PO BID Qty: 14 RF: 0 Continued carvedilol 6.25 mg tablet 6.25 mg PO DAILY RF: 0 pravastatin 40 mg tablet 40 mg PO DAILY RF: 0 isosorbide mononitrate 30 mg tablet extended release 24 hr 30 mg PO DAILY RF: 0 famotidine 20 mg tablet 20 mg PO DAILY RF: 0 aspirin 81 mg Tablet 81 mg PO DAILY RF: 0 Changed lisinopril 10 mg tablet 5 mg PO DAILY Qty: 0 RF: 0 metformin 500 mg tablet extended release 24 hr 500 mg PO DAILY Qty: 0 RF: 0 Referrals / Follow Up: VIGNESH ESCOBAR [Other] - In 1 Week Disposition Disposition (needs filled in before D/C Order can be placed): Home, Self Care
[2021-02-18 11:10] VITALS: BP 116/59; PULSE 96; RESP 28; TEMP 36.8; O2SAT 92
--- NOTE | 2021-02-18 11:10 | CASEMGMT ---
LINDA BELLA NOTE: Pt being discharged. Home ambulatory O2 testing completed. Pt requires 3 L/M @ rest and 5 L/M w/exertion. Script obtained from Dr Monteiro and faxed to [facility]. TC to Jim @ [facility] in [place]. He was made aware pt is discharging home today, that portable tank will be given to pt from supply [facility], and that pt will need concentrator and additional portable tanks @ home. Jim confirms they do have concentrators and portability available to fulfill O2 order. Portable tank provided to pt from [facility] and they were instructed to notify [facility] once they arrive home for delivery of home O2. They voice understanding. TC to Jarocho @ [facility]. He was made aware pt is d/c'ing home today. Per BYRON Avendaño slated for 02/20. D/C instructions and summary faxed to [facility] at this time. Pt and dtr deny having any further questions or needs re: discharge. Debra JOSHUAN LINDA CM
--- NOTE | 2021-02-18 11:11 | DS.PCM_ITS ---
Providers Date of Admission: 02/08/21 Date of Discharge: 02/18/21 Primary Care Physician: VIGNESH ESCOBAR Consultations 02/09/21 07:41 Consult: Infectious Disease Routine Consulting Provider: Raad Arias Reason for Consult: Baricitinib EMERGENT Consult: No MD Notified: Yes Date Notified: 02/09/21 Time Notified: 07:50 Method of Notification: Text Reason For Visit: COVID PNEUMONIA Diagnosis Discharge Diagnosis (1) Pneumonia due to COVID-19 virus: Status: Acute Code(s): U07.1 - COVID-19; J12.82 - Pneumonia due to coronavirus disease 2019 Medications at Discharge Home Medications aspirin 81 mg PO DAILY 02/08/21 carvedilol 6.25 mg PO DAILY 02/08/21 famotidine 20 mg PO DAILY 02/08/21 isosorbide mononitrate 30 mg PO DAILY 02/08/21 pravastatin 40 mg PO DAILY 02/08/21 dextromethorphan-guaifenesin [Mucus DM] 1 tab PO BID #14 tab 02/18/21 lisinopril 5 mg PO DAILY #0 tab 02/18/21 metformin 500 mg PO DAILY #0 tab 02/18/21 Hospital Course Summary of Care Provided Hospital Course: This 70-year-old female was directly admitted from outside hospital on 01/1021 with 3 days of symptom, on 02/01 with shortness of breath, cough, nasal congestion and worsening hypoxia. 1. Acute hypoxic respiratory failure due to bilateral COVID-19 pneumonia- patient is currently on baricitinib. Patient was seen and followed by ID. The patient completed dexamethasone. On baricitinib On 02/17: Patient is out of isolation. I talked to the patient's daughter near the bedside and emphasized on vaccination in the next 1 to 2 weeks. I also encouraged incentive spirometry, PEP and prone positioning. Prescription given for Mucinex #2 acute hypoxic respiratory failure secondary to COVID-19 infection: The patient is ambulatory in home and in the community and requires home oxygen with portability. Discharged on 3 L of oxygen at rest and 5 L on exertion #3 moderate protein caloric malnutrition-nutritional services is seeing patient. Patient is being seen by nutritional service. On nutritional supplement DVT prophylaxis: Lovenox 40 g subcu twice daily Discharge medication reconciliation done. Discharge follow-up instructions completed. Discharge process discussed with the patient and all questions were answered to patient's satisfaction. Total time spent, exact 35 minutes on discharge meds reconciliation, examination, coordination of care with nurses and ancillary staff, review of imaging and blood test and discussion with the patient on follow-up instructions Physical Exam Narrative Seen and examined in the presence of daughter. General: Mild fatigue. No dyspnea. HEENT: Atraumatic, PERRLA, EOMI, Normocephalic Oral: No Gingival or Mucosal Lesions/ Ulcerations Neck: Supple, No JVD, Negative Carotid Bruits Lungs: Air entry diminished in bilateral lung bases. Lungs clear. Cardiovascular: Sinus rhythm, normal S1, Normal S2, No murmurs Abdomen: Bowel Sounds Present, Soft, Non Tender, Non-Distended : No renal angle tenderness. No suprapubic tenderness. Extremities: No edema, Capillary Refill Less than 3 Seconds Skin: No rashes, No breakdown Musculoskeletal: No Tenderness to Palpation of Joints or Extremities Neurological: Cranial nerves II-XII grossly intact, DTR 2+/4 and Symmetrical, Neuro grossly intact Psych/Mental Status: Flat affect. Medical Records Data Medical Nutrition Assessment Dietitian: Malnutrition Criteria Met Start: 02/09/21 11:39 Freq: Status: Active Protocol: Document 02/17/21 12:10 RMA (Rec: 02/17/21 12:10 RMA [id number]) Nutrition Malnutrition Evidence of Malnutrition Exists Yes Malnutrition (moderate): Acute Illness/Injury Evidenced By Suboptimal Energy Intake ( Moderate),Weight Loss ( Moderate) Clinical Problem Acute Disease or Injury Related Malnutrition Etiology moderate, acute malnutrition r /t inadequate energy intake d/ t COVID-19 illness Signs/Symptoms as evidenced by unintentional wt loss of 5.2#/2.8% x 1 week, estimated PO intake meeting < 50% of estimated nutritional needs >1 week Status Active Problem Recommendation Dietitian Recommendations/Changes Will continue liberalize diet to Regular w/ fortified foods d/t s/s of malnutrition; encourage improved intake at meals. Will d/c glucerna shake w/ meals d/t pt dislike and refusals. No new weight to assess--- suspect additional wt loss since admit as pt is not consuming adequate nutrition at meals and refusing oral nutrition supplements. Weight / BMI Weight Weight: 176 lb 12.972 oz Body Mass Index (BMI) 32.3 ABG / Lab / Microbiology Data Result Diagrams: 02/17/21 07:21 02/17/21 07:21 Laboratory: Laboratory Results - last 24 hr 02/14/21 06:56: Diff Path Review Reviewed 02/17/21 12:25: POC Glucose 171 H 02/17/21 16:32: POC Glucose 148 H 02/17/21 21:16: POC Glucose 127 H D/C Instructions Discharge Diet: No restrictions Meaningful Use Info Meaningful Use Diagnoses (Choose all that apply): None applicable Discharge Plan Admission Admit Date/Time: 02/08/21 17:19 Attending Provider: David Monteiro Consulting Providers: Raad Arias Instructions Additional Instructions / Restrictions: Advised Covid vaccination within 1 week. Her symptom onset was 02/01/2021 Discharge Orders/Prescriptions Prescriptions: New Mucus DM 30-600 mg Tablet Extended Release 12 Hr 1 tab PO BID Qty: 14 RF: 0 Continued carvedilol 6.25 mg tablet 6.25 mg PO DAILY RF: 0 pravastatin 40 mg tablet 40 mg PO DAILY RF: 0 isosorbide mononitrate 30 mg tablet extended release 24 hr 30 mg PO DAILY RF: 0 famotidine 20 mg tablet 20 mg PO DAILY RF: 0 aspirin 81 mg Tablet 81 mg PO DAILY RF: 0 Changed lisinopril 10 mg tablet 5 mg PO DAILY Qty: 0 RF: 0 metformin 500 mg tablet extended release 24 hr 500 mg PO DAILY Qty: 0 RF: 0 Referrals / Follow Up: VIGNESH ESCOBAR [Other] - In 1 Week Disposition Disposition (needs filled in before D/C Order can be placed): Home, Self Care Charges/Coding Visit Charges Inpatient E&M: 81924 Disch Hosp
[2021-02-18] MEDS: Aspirin 81 MG TAB.CHEW PO (11:23)
[2021-02-18] MEDS: Carvedilol 6.25 MG Tablet PO (11:23)
[2021-02-18] MEDS: guaiFENesin/D-Methorphan TAB.SR.12H 1 TABLET PO (11:24)
[2021-02-18] MEDS: Isosorbide Mononitrate 30 MG Tablet PO (11:24)
[2021-02-18] MEDS: Famotidine 20 MG Tablet PO (11:25)
[2021-02-18 12:05] LABS: Bedside Glucose 143 mg/dL (70-110)
== END 2021-02-18 12:11 | disposition home or self-care (01) | DRG 177 ==
PROVIDERS: Internal Medicine; Internal Medicine Infectious Disease; Admitting Provider Family Medicine; Visit Provider Internal Medicine
DX: U07.1 COVID-19 (principal); J96.01 Acute respiratory failure with hypoxia; J12.82 Pneumonia due to coronavirus disease 2019; E44.0 Moderate protein-calorie malnutrition; N39.0 Urinary tract infection, site not specified; E11.9 Type 2 diabetes mellitus without complications; I10 Essential (primary) hypertension; E78.5 Hyperlipidemia, unspecified; I25.10 Atherosclerotic heart disease of native coronary artery without angina pectoris; B96.20 Unspecified Escherichia coli [E. coli] as the cause of diseases classified elsewhere; Z68.32 Body mass index [BMI] 32.0-32.9, adult; Z95.5 Presence of coronary angioplasty implant and graft; Z79.02 Long term (current) use of antithrombotics/antiplatelets; Z79.899 Other long term (current) drug therapy; Z79.84 Long term (current) use of oral hypoglycemic drugs
CPT/HCPCS: 36415; 80048; 80053; 81001; 82962; 83880; 84145; 85025; 85027; 85379; 94660; 94667; 94762; 97110; 97162; 97166; 97530; 97535; 97802; 99251; J7040; G0463; J1940